=== PATIENT | female | born 1970 | race Caucasian/White ===

== ENCOUNTER 2022-03-12 01:41 | Inpatient (IN) | payer MEDICAID ==
[~2022-03-12] VITALS: Ht 154.9 cm; Wt 42.0 kg
[2022-03-12] MEDS ORDERED: DiphenhydrAMINE HCL 50 MG/ML VIAL IM ONE (02:45)
[2022-03-12] MEDS ORDERED: LORazepam 2 MG/ML VIAL IM ONE (02:45)
[2022-03-12] MEDS ORDERED: HALOPERIDOL LACTATE 5 MG/ML VIAL IM ONE (02:45)
[2022-03-12 03:45] LABS: COVID AG,FIA SOURCE NASOPHARYNGEAL
[2022-03-12 03:49] LABS: BASOPHILS % (AUTO) 0.6 % (0.0-2.0); EOSINOPHILS % (AUTO) 0.8 % (1.0-6.0); HEMATOCRIT 41.5 % (36-46); HEMOGLOBIN 13.3 g/dL (12.0-16.0); LYMPHOCYTES # (AUTO) 1.3 K/uL (1.0-4.8); LYMPHOCYTES % (AUTO) 11.3 % (22.0-44.0); MEAN CORPUSCULAR HEMOGLOBIN 27.9 pg (26.0-34.0); MEAN CORPUSCULAR HGB CONC 32.1 G/dL (31.0-37.0); MEAN CORPUSCULAR VOLUME 87 fL (80-100); MONOCYTES # (AUTO) 1.2 K/uL (0.1-1.0); NEUTROPHILS # (AUTO) 8.5 K/uL (1.8-7.7); NEUTROPHILS % (AUTO) 76.3 % (40.0-70.0); PLATELET COUNT (AUTO) 408 K/uL (150-450); RED BLOOD CELL COUNT(AUTO) 4.78 MIL/uL (4.00-5.20); RED CELL DISTRIBUTION WIDTH 19.9 % (11.5-14.5)
[2022-03-12 03:56] LABS: ANION GAP 10 mmol/L (8-16); CALCIUM, TOTAL 9.6 mg/dL (8.8-10.5); CARBON DIOXIDE 23 mmol/L (22-29); CHLORIDE 102 mmol/L (98-107); CREATININE 0.77 mg/dL (0.60-1.30); GLUCOSE,RANDOM 88 mg/dL (70-110); POTASSIUM 3.6 mmol/L (3.5-5.1); SODIUM SERUM 135 mmol/L (136-145); UREA NITROGEN, BLOOD 18 mg/dL (7-18)
[2022-03-12 03:57] LABS: GLOMERULAR FILTR. RATE CALC > 60 mL/min (>60)
[2022-03-12 04:02] LABS: ALANINE AMINOTRANSFERASE 30 U/L (12-78); ALBUMIN 3.4 g/dL (3.4-5.0); ALKALINE PHOSPHATASE 112 U/L (46-116); ASPARTATE AMINOTRANSFERASE 49 U/L (15-37); BILIRUBIN,TOTAL 0.7 mg/dL (0.1-1.0); TOTAL PROTEIN, SERUM 7.3 g/dL (6.4-8.2)
[2022-03-12] MEDS: HALOPERIDOL 5 MG TABLET PO PRN (20:10)
[2022-03-12] MEDS: LORazepam 2 MG TABLET PO PRN (20:12)
[2022-03-12 20:23] VITALS: BP 151/98
[2022-03-12] MEDS ORDERED: PNEUMOCOCCAL VACCINE POLYVALENT 0.5 ML VIAL [PPSV23] IM. ONE (20:30)
[2022-03-12] MEDS ORDERED: MAG HYDROX/AL HYDROX/SIMETH ES 30 ML SUSPENSION UDCUP PO PRN (21:00)
[2022-03-12] MEDS ORDERED: PETROLATUM,WHITE 28 GM JELLY TP PRN (21:00)
[2022-03-12] MEDS ORDERED: LOPERAMIDE HCL 2 MG CAPSULE PO PRN (21:00)
[2022-03-12] MEDS ORDERED: ALBUTEROL SULFATE HFA 90 MCG/PUFF 8 GM INHALER IH PRN (21:00)
[2022-03-12] MEDS ORDERED: ONDANSETRON HCL 4 MG TABLET PO PRN (21:00)
[2022-03-12] MEDS ORDERED: DOCUSATE SODIUM 100 MG CAPSULE PO PRN (21:00)
[2022-03-12] MEDS ORDERED: MAGNESIUM HYDROXIDE SUSPENSION 30 ML UDCUP PO PRN (21:00)
[2022-03-12] MEDS ORDERED: CloNIDine HCL 0.1 MG TABLET PO PRN (21:00)
[2022-03-12] MEDS ORDERED: GuaiFENesin/D-METHORPHAN [SUGAR-FREE] 200-20MG/10 ML SYRUP UDCUP PO PRN (21:00)
[2022-03-13 08:44] VITALS: BP 139/97
[2022-03-13] MEDS: HALOPERIDOL 5 MG TABLET PO PRN (09:00)
[2022-03-13] MEDS: AmLODIPine BESYLATE 2.5 MG TABLET PO SCH (09:01)
[2022-03-13] MEDS: LORazepam 2 MG TABLET PO PRN (09:01)
[2022-03-13] MEDS: NICOTINE 14 MG/24 HOUR PATCH TD PRN (10:56)
[2022-03-13 20:15] VITALS: BP 108/67
[2022-03-13] MEDS: QUEtiapine FUMARATE 100 MG TABLET PO SCH (20:19)
[2022-03-13] MEDS: ZOLPIDEM TARTRATE 10 MG TABLET PO PRN (20:22)
[2022-03-14] MEDS: LORazepam 2 MG TABLET PO PRN ×2 (08:07→17:31)
[2022-03-14] MEDS: AmLODIPine BESYLATE 2.5 MG TABLET PO SCH (08:07)
[2022-03-14 08:29] VITALS: BP 125/84
[2022-03-14] MEDS: NICOTINE 14 MG/24 HOUR PATCH TD PRN (15:12)
[2022-03-14 20:16] VITALS: BP 118/75
[2022-03-14] MEDS: QUEtiapine FUMARATE 100 MG TABLET PO SCH (20:17)
[2022-03-14] MEDS: ZOLPIDEM TARTRATE 10 MG TABLET PO PRN (20:20)
[2022-03-15] MEDS: AmLODIPine BESYLATE 2.5 MG TABLET PO SCH (08:23)
[2022-03-15 08:33] VITALS: BP 137/83
[2022-03-15] MEDS: LORazepam 2 MG TABLET PO PRN ×2 (10:05→17:15)
[2022-03-15] MEDS: QUEtiapine FUMARATE 100 MG TABLET PO SCH (20:13)
[2022-03-16] MEDS: LORazepam 2 MG TABLET PO PRN ×2 (08:04→14:39)
[2022-03-16] MEDS: AmLODIPine BESYLATE 2.5 MG TABLET PO SCH (08:04)
[2022-03-16 08:14] VITALS: BP 155/101
[2022-03-16] MEDS: FOLIC ACID 1 MG TABLET PO SCH (12:20)
[2022-03-16] MEDS: THIAMINE 100 MG TABLET PO SCH (12:20)
[2022-03-16] MEDS: MULTIVITAMINS WITH MINERALS, THERAPEUTIC TABLET PO SCH (12:20)
[2022-03-16 12:58] VITALS: BP 128/89
[2022-03-16] MEDS: QUEtiapine FUMARATE 100 MG TABLET PO SCH (21:00)
[2022-03-16 21:35] VITALS: BP 132/88
[2022-03-17] MEDS: MULTIVITAMINS WITH MINERALS, THERAPEUTIC TABLET PO SCH (08:13)
[2022-03-17] MEDS: FOLIC ACID 1 MG TABLET PO SCH (08:14)
[2022-03-17] MEDS: AmLODIPine BESYLATE 2.5 MG TABLET PO SCH (08:14)
[2022-03-17] MEDS: THIAMINE 100 MG TABLET PO SCH (08:14)
[2022-03-17] MEDS: LORazepam 2 MG TABLET PO PRN ×2 (08:14→17:29)
[2022-03-17 08:28] VITALS: BP 143/107
[2022-03-17 10:30] VITALS: BP 124/94
[2022-03-17] MEDS: NICOTINE 14 MG/24 HOUR PATCH TD PRN (16:19)
[2022-03-17] MEDS: QUEtiapine FUMARATE 100 MG TABLET PO SCH (20:12)
[2022-03-18] MEDS: LORazepam 2 MG TABLET PO PRN ×2 (06:46→12:18)
[2022-03-18] MEDS: AmLODIPine BESYLATE 2.5 MG TABLET PO SCH (08:24)
[2022-03-18] MEDS: THIAMINE 100 MG TABLET PO SCH (08:24)
[2022-03-18] MEDS: MULTIVITAMINS WITH MINERALS, THERAPEUTIC TABLET PO SCH (08:24)
[2022-03-18] MEDS: FOLIC ACID 1 MG TABLET PO SCH (08:24)
[2022-03-18 08:47] VITALS: BP 136/89
[2022-03-18 09:16] VITALS: BP 122/69
[2022-03-18] MEDS: QUEtiapine FUMARATE 100 MG TABLET PO SCH ×2 (20:28→22:23)
[2022-03-18 20:44] VITALS: BP 123/88
[2022-03-19] MEDS: FOLIC ACID 1 MG TABLET PO SCH (08:05)
[2022-03-19] MEDS: AmLODIPine BESYLATE 2.5 MG TABLET PO SCH (08:05)
[2022-03-19] MEDS: MULTIVITAMINS WITH MINERALS, THERAPEUTIC TABLET PO SCH (08:05)
[2022-03-19] MEDS: LORazepam 2 MG TABLET PO PRN ×2 (08:06→13:39)
[2022-03-19] MEDS: THIAMINE 100 MG TABLET PO SCH (08:06)
[2022-03-19 08:42] VITALS: BP 124/83
[2022-03-19] MEDS: NICOTINE 14 MG/24 HOUR PATCH TD PRN (13:35)
[2022-03-19] MEDS: QUEtiapine FUMARATE 100 MG TABLET PO SCH (20:13)
[2022-03-19] MEDS: ZOLPIDEM TARTRATE 10 MG TABLET PO PRN (20:17)
[2022-03-19 22:43] VITALS: BP 118/52
[2022-03-20 08:00] VITALS: BP 120/74
[2022-03-20] MEDS: MULTIVITAMINS WITH MINERALS, THERAPEUTIC TABLET PO SCH (08:45)
[2022-03-20] MEDS: THIAMINE 100 MG TABLET PO SCH (08:45)
[2022-03-20] MEDS: FOLIC ACID 1 MG TABLET PO SCH (08:45)
[2022-03-20] MEDS: AmLODIPine BESYLATE 2.5 MG TABLET PO SCH (08:45)
[2022-03-20] MEDS: LORazepam 2 MG TABLET PO PRN ×3 (08:56→18:01)
[2022-03-20] MEDS: HALOPERIDOL 5 MG TABLET PO PRN (14:33)
[2022-03-20] MEDS: NICOTINE 14 MG/24 HOUR PATCH TD PRN (17:23)
[2022-03-20] MEDS: ZOLPIDEM TARTRATE 10 MG TABLET PO PRN (20:21)
[2022-03-20] MEDS: QUEtiapine FUMARATE 100 MG TABLET PO SCH (20:21)
[2022-03-21 07:12] VITALS: BP 113/75
[2022-03-21 08:18] VITALS: BP 114/74
[2022-03-21] MEDS: MULTIVITAMINS WITH MINERALS, THERAPEUTIC TABLET PO SCH (08:44)
[2022-03-21] MEDS: THIAMINE 100 MG TABLET PO SCH (08:44)
[2022-03-21] MEDS: LORazepam 2 MG TABLET PO PRN ×3 (08:45→18:38)
[2022-03-21] MEDS: FOLIC ACID 1 MG TABLET PO SCH (08:46)
[2022-03-21] MEDS: AmLODIPine BESYLATE 2.5 MG TABLET PO SCH (08:46)
[2022-03-21 09:06] LABS: GLUCOMETER DEV NAME(LOC) POC.BV
[2022-03-21] MEDS: HALOPERIDOL 5 MG TABLET PO PRN (14:53)
[2022-03-21 20:00] VITALS: BP 119/81
[2022-03-21] MEDS: QUEtiapine FUMARATE 100 MG TABLET PO SCH (20:59)
[2022-03-22 08:05] VITALS: BP 124/76
[2022-03-22] MEDS: THIAMINE 100 MG TABLET PO SCH (08:35)
[2022-03-22] MEDS: MULTIVITAMINS WITH MINERALS, THERAPEUTIC TABLET PO SCH (08:36)
[2022-03-22] MEDS: AmLODIPine BESYLATE 2.5 MG TABLET PO SCH (08:36)
[2022-03-22] MEDS: FOLIC ACID 1 MG TABLET PO SCH (08:36)
[2022-03-22] MEDS: LORazepam 2 MG TABLET PO PRN ×2 (11:00→20:15)
[2022-03-22] MEDS: QUEtiapine FUMARATE 100 MG TABLET PO SCH (20:15)
[2022-03-22 21:40] VITALS: BP 107/61
[2022-03-23 08:06] VITALS: BP 116/79
[2022-03-23] MEDS: MULTIVITAMINS WITH MINERALS, THERAPEUTIC TABLET PO SCH (08:11)
[2022-03-23] MEDS: THIAMINE 100 MG TABLET PO SCH (08:11)
[2022-03-23] MEDS: FOLIC ACID 1 MG TABLET PO SCH (08:11)
[2022-03-23] MEDS: AmLODIPine BESYLATE 2.5 MG TABLET PO SCH (08:11)
[2022-03-23] MEDS: LORazepam 2 MG TABLET PO PRN ×3 (10:20→20:10)
[2022-03-23] MEDS: NICOTINE 14 MG/24 HOUR PATCH TD PRN (10:41)
[2022-03-23] MEDS: HALOPERIDOL 5 MG TABLET PO PRN (13:55)
[2022-03-23] MEDS: QUEtiapine FUMARATE 100 MG TABLET PO SCH (20:10)
[2022-03-23 20:25] VITALS: BP 104/73
[2022-03-24] MEDS: ACETAMINOPHEN 325 MG TABLET PO PRN (03:36)
[2022-03-24 08:08] VITALS: BP 104/62
[2022-03-24] MEDS: LORazepam 2 MG TABLET PO PRN ×2 (08:21→12:32)
[2022-03-24 08:26] VITALS: BP 110/77
[2022-03-24] MEDS: MULTIVITAMINS WITH MINERALS, THERAPEUTIC TABLET PO SCH (08:26)
[2022-03-24] MEDS: FOLIC ACID 1 MG TABLET PO SCH (08:26)
[2022-03-24] MEDS: IBUPROFEN 400 MG TABLET PO PRN (08:26)
[2022-03-24] MEDS: AmLODIPine BESYLATE 2.5 MG TABLET PO SCH (08:26)
[2022-03-24] MEDS: THIAMINE 100 MG TABLET PO SCH (08:26)
[2022-03-24] MEDS: HALOPERIDOL 5 MG TABLET PO PRN (13:42)
[2022-03-24 20:11] VITALS: BP 113/73
[2022-03-24] MEDS: ZOLPIDEM TARTRATE 10 MG TABLET PO PRN (21:02)
[2022-03-24] MEDS: QUEtiapine FUMARATE 100 MG TABLET PO SCH (21:02)
[2022-03-25] MEDS: MULTIVITAMINS WITH MINERALS, THERAPEUTIC TABLET PO SCH (08:08)
[2022-03-25] MEDS: FOLIC ACID 1 MG TABLET PO SCH (08:08)
[2022-03-25] MEDS: AmLODIPine BESYLATE 2.5 MG TABLET PO SCH (08:09)
[2022-03-25] MEDS: LORazepam 2 MG TABLET PO PRN ×2 (08:09→13:49)
[2022-03-25] MEDS: THIAMINE 100 MG TABLET PO SCH (08:09)
[2022-03-25] MEDS: HALOPERIDOL 5 MG TABLET PO PRN (08:09)
[2022-03-25 08:20] VITALS: BP 105/62
[2022-03-25] MEDS: QUEtiapine FUMARATE 100 MG TABLET PO SCH (20:04)
[2022-03-25] MEDS: ZOLPIDEM TARTRATE 10 MG TABLET PO PRN (20:04)
[2022-03-25 20:24] VITALS: BP 108/68
[2022-03-26] MEDS: THIAMINE 100 MG TABLET PO SCH (08:24)
[2022-03-26] MEDS: FOLIC ACID 1 MG TABLET PO SCH (08:25)
[2022-03-26] MEDS: AmLODIPine BESYLATE 2.5 MG TABLET PO SCH (08:25)
[2022-03-26] MEDS: MULTIVITAMINS WITH MINERALS, THERAPEUTIC TABLET PO SCH (08:25)
[2022-03-26] MEDS: LORazepam 2 MG TABLET PO PRN ×2 (08:25→15:41)
[2022-03-26 09:55] VITALS: BP 115/72
[2022-03-26] MEDS: NICOTINE 14 MG/24 HOUR PATCH TD PRN (15:41)
[2022-03-26] MEDS: QUEtiapine FUMARATE 100 MG TABLET PO SCH (20:24)
[2022-03-26 23:40] VITALS: BP 122/82
[2022-03-27] MEDS: THIAMINE 100 MG TABLET PO SCH (08:21)
[2022-03-27] MEDS: LORazepam 2 MG TABLET PO PRN ×2 (08:21→14:06)
[2022-03-27] MEDS: MULTIVITAMINS WITH MINERALS, THERAPEUTIC TABLET PO SCH (08:21)
[2022-03-27] MEDS: AmLODIPine BESYLATE 2.5 MG TABLET PO SCH (08:21)
[2022-03-27] MEDS: FOLIC ACID 1 MG TABLET PO SCH (08:21)
[2022-03-27 11:17] VITALS: BP 111/78
[2022-03-27] MEDS: QUEtiapine FUMARATE 100 MG TABLET PO SCH (20:01)
[2022-03-27 20:13] VITALS: BP 108/66
[2022-03-28] MEDS: FOLIC ACID 1 MG TABLET PO SCH (08:12)
[2022-03-28] MEDS: MULTIVITAMINS WITH MINERALS, THERAPEUTIC TABLET PO SCH (08:12)
[2022-03-28] MEDS: AmLODIPine BESYLATE 2.5 MG TABLET PO SCH (08:12)
[2022-03-28] MEDS: THIAMINE 100 MG TABLET PO SCH (08:12)
[2022-03-28] MEDS: NICOTINE 14 MG/24 HOUR PATCH TD PRN (08:13)
[2022-03-28 08:30] VITALS: BP 127/85
[2022-03-28] MEDS: LORazepam 2 MG TABLET PO PRN ×3 (08:40→17:24)
[2022-03-28 15:21] LABS: GLUCOMETER DEV NAME(LOC) POC.BV
[2022-03-28] MEDS: QUEtiapine FUMARATE 100 MG TABLET PO SCH (20:29)
[2022-03-28 20:50] VITALS: BP 101/66
[2022-03-29 08:53] VITALS: BP 110/68
[2022-03-29] MEDS: LORazepam 2 MG TABLET PO PRN ×3 (09:15→19:14)
[2022-03-29] MEDS: FOLIC ACID 1 MG TABLET PO SCH (09:15)
[2022-03-29] MEDS: THIAMINE 100 MG TABLET PO SCH (09:15)
[2022-03-29] MEDS: MULTIVITAMINS WITH MINERALS, THERAPEUTIC TABLET PO SCH (09:15)
[2022-03-29] MEDS: AmLODIPine BESYLATE 2.5 MG TABLET PO SCH (09:15)
[2022-03-29] MEDS: QUEtiapine FUMARATE 100 MG TABLET PO SCH (20:39)
[2022-03-30 04:07] VITALS: BP 104/73
[2022-03-30 08:26] VITALS: BP 112/71
[2022-03-30] MEDS: LORazepam 2 MG TABLET PO PRN ×3 (08:30→17:05)
[2022-03-30] MEDS: MULTIVITAMINS WITH MINERALS, THERAPEUTIC TABLET PO SCH (08:30)
[2022-03-30] MEDS: NICOTINE 14 MG/24 HOUR PATCH TD PRN (08:30)
[2022-03-30] MEDS: THIAMINE 100 MG TABLET PO SCH (08:30)
[2022-03-30] MEDS: FOLIC ACID 1 MG TABLET PO SCH (08:30)
[2022-03-30] MEDS: AmLODIPine BESYLATE 2.5 MG TABLET PO SCH (08:30)
[2022-03-30 20:00] VITALS: BP 112/74
[2022-03-30] MEDS: ZOLPIDEM TARTRATE 10 MG TABLET PO PRN (21:04)
[2022-03-30] MEDS: QUEtiapine FUMARATE 100 MG TABLET PO SCH (21:04)
[2022-03-31] MEDS: THIAMINE 100 MG TABLET PO SCH (08:13)
[2022-03-31] MEDS: HALOPERIDOL 5 MG TABLET PO PRN ×2 (08:14→13:32)
[2022-03-31] MEDS: MULTIVITAMINS WITH MINERALS, THERAPEUTIC TABLET PO SCH (08:14)
[2022-03-31] MEDS: FOLIC ACID 1 MG TABLET PO SCH (08:14)
[2022-03-31] MEDS: LORazepam 2 MG TABLET PO PRN ×3 (08:14→16:41)
[2022-03-31] MEDS: AmLODIPine BESYLATE 2.5 MG TABLET PO SCH (08:14)
[2022-03-31 08:30] VITALS: BP 124/92
[2022-03-31] MEDS: NICOTINE 14 MG/24 HOUR PATCH TD PRN (13:24)
[2022-03-31] MEDS: IBUPROFEN 400 MG TABLET PO PRN (16:41)
[2022-03-31 20:11] VITALS: BP 118/72
[2022-03-31] MEDS: QUEtiapine FUMARATE 100 MG TABLET PO SCH (21:30)
[2022-04-01 08:07] VITALS: BP 118/69
[2022-04-01] MEDS: MULTIVITAMINS WITH MINERALS, THERAPEUTIC TABLET PO SCH (08:19)
[2022-04-01] MEDS: FOLIC ACID 1 MG TABLET PO SCH (08:19)
[2022-04-01] MEDS: AmLODIPine BESYLATE 2.5 MG TABLET PO SCH (08:19)
[2022-04-01] MEDS: LORazepam 2 MG TABLET PO PRN ×2 (08:19→13:39)
[2022-04-01] MEDS: THIAMINE 100 MG TABLET PO SCH (08:19)
[2022-04-01] MEDS: HALOPERIDOL 5 MG TABLET PO PRN (16:41)
[2022-04-01] MEDS: NICOTINE 14 MG/24 HOUR PATCH TD PRN (17:10)
[2022-04-01 20:00] VITALS: BP 93/60
[2022-04-01] MEDS: QUEtiapine FUMARATE 100 MG TABLET PO SCH (20:15)
[2022-04-02] MEDS: THIAMINE 100 MG TABLET PO SCH (08:23)
[2022-04-02] MEDS: MULTIVITAMINS WITH MINERALS, THERAPEUTIC TABLET PO SCH (08:23)
[2022-04-02] MEDS: FOLIC ACID 1 MG TABLET PO SCH (08:24)
[2022-04-02] MEDS: AmLODIPine BESYLATE 2.5 MG TABLET PO SCH (08:24)
[2022-04-02] MEDS: LORazepam 2 MG TABLET PO PRN ×2 (08:25→13:26)
[2022-04-02 10:01] VITALS: BP 110/75
[2022-04-02] MEDS: HALOPERIDOL 5 MG TABLET PO PRN (16:17)
[2022-04-02 20:00] VITALS: BP 105/73
[2022-04-02] MEDS: QUEtiapine FUMARATE 100 MG TABLET PO SCH (20:25)
[2022-04-03] MEDS: FOLIC ACID 1 MG TABLET PO SCH (08:04)
[2022-04-03] MEDS: THIAMINE 100 MG TABLET PO SCH (08:04)
[2022-04-03] MEDS: AmLODIPine BESYLATE 2.5 MG TABLET PO SCH (08:04)
[2022-04-03] MEDS: MULTIVITAMINS WITH MINERALS, THERAPEUTIC TABLET PO SCH (08:04)
[2022-04-03] MEDS: LORazepam 2 MG TABLET PO PRN ×3 (08:04→16:40)
[2022-04-03 09:13] VITALS: BP 107/72
[2022-04-03] MEDS: NICOTINE 14 MG/24 HOUR PATCH TD PRN (09:16)
[2022-04-03] MEDS: HALOPERIDOL 5 MG TABLET PO PRN (09:19)
[2022-04-03] MEDS: QUEtiapine FUMARATE 100 MG TABLET PO SCH (20:21)
[2022-04-04 00:12] VITALS: BP 108/78
[2022-04-04 08:22] VITALS: BP 114/78
[2022-04-04] MEDS: MULTIVITAMINS WITH MINERALS, THERAPEUTIC TABLET PO SCH (08:22)
[2022-04-04] MEDS: THIAMINE 100 MG TABLET PO SCH (08:22)
[2022-04-04] MEDS: FOLIC ACID 1 MG TABLET PO SCH (08:23)
[2022-04-04] MEDS: AmLODIPine BESYLATE 2.5 MG TABLET PO SCH (08:23)
[2022-04-04] MEDS: HALOPERIDOL 5 MG TABLET PO PRN ×2 (08:30→13:08)
[2022-04-04 08:36] LABS: GLUCOMETER DEV NAME(LOC) POC.BV
[2022-04-04] MEDS: NICOTINE 14 MG/24 HOUR PATCH TD PRN (10:57)
[2022-04-04] MEDS: ACETAMINOPHEN 325 MG TABLET PO PRN (15:37)
[2022-04-04] MEDS: QUEtiapine FUMARATE 100 MG TABLET PO SCH (20:07)
[2022-04-04 20:42] VITALS: BP 106/66
[2022-04-05] MEDS: THIAMINE 100 MG TABLET PO SCH (08:01)
[2022-04-05] MEDS: AmLODIPine BESYLATE 2.5 MG TABLET PO SCH (08:01)
[2022-04-05] MEDS: MULTIVITAMINS WITH MINERALS, THERAPEUTIC TABLET PO SCH (08:01)
[2022-04-05] MEDS: HALOPERIDOL 5 MG TABLET PO PRN ×2 (08:01→12:36)
[2022-04-05] MEDS: FOLIC ACID 1 MG TABLET PO SCH (08:01)
[2022-04-05 08:05] VITALS: BP 121/76
[2022-04-05] MEDS: NICOTINE 14 MG/24 HOUR PATCH TD PRN (12:36)
[2022-04-05 20:02] VITALS: BP 147/87
[2022-04-05] MEDS: QUEtiapine FUMARATE 100 MG TABLET PO SCH (20:05)
[2022-04-06 07:21] LABS: BASOPHILS % (AUTO) 0.8 % (0.0-2.0); HEMATOCRIT 44.8 % (36-46); HEMOGLOBIN 14.6 g/dL (12.0-16.0); LYMPHOCYTES # (AUTO) 2.2 K/uL (1.0-4.8); LYMPHOCYTES % (AUTO) 30.2 % (22.0-44.0); MEAN CORPUSCULAR HEMOGLOBIN 28.3 pg (26.0-34.0); MEAN CORPUSCULAR HGB CONC 32.6 G/dL (31.0-37.0); MEAN CORPUSCULAR VOLUME 87 fL (80-100); MONOCYTES # (AUTO) 0.7 K/uL (0.1-1.0); MONOCYTES % (AUTO) 9.8 % (2.0-9.0); NEUTROPHILS % (AUTO) 56.2 % (40.0-70.0); PLATELET COUNT (AUTO) 437 K/uL (150-450); RED BLOOD CELL COUNT(AUTO) 5.16 MIL/uL (4.00-5.20); RED CELL DISTRIBUTION WIDTH 19.1 % (11.5-14.5)
[2022-04-06 07:36] LABS: ANION GAP 8 mmol/L (8-16); CARBON DIOXIDE 31 mmol/L (22-29); CHLORIDE 98 mmol/L (98-107); CREATININE 0.83 mg/dL (0.60-1.30); GLUCOSE,RANDOM 91 mg/dL (70-110); POTASSIUM 3.9 mmol/L (3.5-5.1); SODIUM SERUM 137 mmol/L (136-145); UREA NITROGEN, BLOOD 22 mg/dL (7-18)
[2022-04-06 07:37] LABS: GLOMERULAR FILTR. RATE CALC > 60 mL/min (>60)
[2022-04-06] MEDS: FOLIC ACID 1 MG TABLET PO SCH (07:57)
[2022-04-06] MEDS: AmLODIPine BESYLATE 2.5 MG TABLET PO SCH (07:57)
[2022-04-06] MEDS: MULTIVITAMINS WITH MINERALS, THERAPEUTIC TABLET PO SCH (07:57)
[2022-04-06] MEDS: THIAMINE 100 MG TABLET PO SCH (07:57)
[2022-04-06] MEDS: HALOPERIDOL 5 MG TABLET PO PRN ×2 (07:58→13:46)
[2022-04-06 08:03] VITALS: BP 129/84
[2022-04-06 16:45] VITALS: BP 118/74
[2022-04-06] MEDS: IBUPROFEN 400 MG TABLET PO PRN (16:45)
[2022-04-06] MEDS: NICOTINE 14 MG/24 HOUR PATCH TD PRN (17:30)
[2022-04-06 20:10] VITALS: BP 141/87
[2022-04-06] MEDS: QUEtiapine FUMARATE 100 MG TABLET PO SCH (20:13)
[2022-04-07] MEDS: ZOLPIDEM TARTRATE 10 MG TABLET PO PRN (02:49)
[2022-04-07] MEDS: AmLODIPine BESYLATE 2.5 MG TABLET PO SCH (08:18)
[2022-04-07] MEDS: FOLIC ACID 1 MG TABLET PO SCH (08:18)
[2022-04-07] MEDS: MULTIVITAMINS WITH MINERALS, THERAPEUTIC TABLET PO SCH (08:18)
[2022-04-07] MEDS: THIAMINE 100 MG TABLET PO SCH (08:18)
[2022-04-07 08:19] VITALS: BP 142/85
[2022-04-07] MEDS: HALOPERIDOL 5 MG TABLET PO PRN (09:17)
[2022-04-07 11:47] VITALS: BP 130/76
[2022-04-07] MEDS: IBUPROFEN 400 MG TABLET PO PRN (11:47)
[2022-04-07] MEDS ORDERED: QUET100T PO (14:09)
[2022-04-07] MEDS ORDERED: AMLO2.5T96 PO (14:09)
[2022-04-07] MEDS: NICOTINE 14 MG/24 HOUR PATCH TD PRN (15:00)
[2022-04-08] MEDS ORDERED: QUET100T34 PO (06:02)
== END 2022-04-07 16:05 | disposition home or self-care (01) | DRG 753 ==
LOC: EMS 01:45 → B3A 17:05
PROVIDERS: ADMIT Psychiatry & Neurology Psychiatry; ATTEND Psychiatry & Neurology Psychiatry
DX: F31.5 Bipolar disorder, current episode depressed, severe, with psychotic features (principal); E44.0 Moderate protein-calorie malnutrition; D72.829 Elevated white blood cell count, unspecified; Z20.822 Contact with and (suspected) exposure to COVID-19; E87.1 Hypo-osmolality and hyponatremia; R74.01 Elevation of levels of liver transaminase levels; G35 Multiple sclerosis; Z59.00 Homelessness unspecified; Z68.1 Body mass index [BMI] 19.9 or less, adult; Z79.899 Other long term (current) drug therapy; Z88.2 Allergy status to sulfonamides
CPT/HCPCS: 80048; 80053; 85025; 99291; G0480; J1200; J1630; J2060